=== PATIENT | female | born 1960 | race Caucasian/White ===

== ENCOUNTER 2017-05-14 08:22 | Emergency (ER) | payer OTHER ==
[~2017-05-14] VITALS: Ht 165.1 cm; Wt 140.6 kg
[~2017-05-14 08:22] MED LIST: CIPR500 PO; HYDCHL12.5 PO; LEVSOD125 PO; METO50ER PO; MULVITMINF PO; RXOXYACE PO
[2017-05-14] MEDS ORDERED: LISI20 (09:04)
[2017-05-14] MEDS ORDERED: Arthritis Pai42.5 GM TOP (10:02)
== END 2017-05-14 11:04 | disposition home or self-care (01) ==
LOC: ER 08:22
DX: M12.9 Arthropathy, unspecified (principal); M25.561 Pain in right knee; I10 Essential (primary) hypertension; E03.9 Hypothyroidism, unspecified; Z88.8 Allergy status to other drugs, medicaments and biological substances; Z79.899 Other long term (current) drug therapy; Z87.891 Personal history of nicotine dependence
CPT/HCPCS: 73564; 73610; 99283

== ENCOUNTER 2020-08-23 10:25 | Emergency (ER) | payer OTHER ==
[~2020-08-23] VITALS: Ht 165.1 cm; Wt 126.5 kg
[~2020-08-23 10:25] MED LIST changes: +Arthritis Pai42.5 GM TOP; +LISI20
[2020-08-23 11:04] LABS: BASOPHILS ABSOLUTE AUTO 0.08 K/mm3 (0.00-0.23); BASOPHILS PERCENT AUTO 1 % (0-2); EOSINOPHILS ABSOLUTE AUTO 0.27 K/mm3 (0.00-0.68); EOSINOPHILS PERCENT AUTO 4 % (0-6); Hematocrit 46.2 % (33.0-51.0); IMMATURE GRAN ABSOLUTE AUTO 0.01 K/mm3 (0.00-0.10); IMMATURE GRAN PERCENT AUTO 0 % (0-1); LYMPHOCYTES ABSOLUTE AUTO 2.43 K/mm3 (0.84-5.20); LYMPHOCYTES PERCENT AUTO 32 % (21-46); MONOCYTES ABSOLUTE AUTO 0.62 K/mm3 (0.16-1.47); MONOCYTES PERCENT AUTO 8 % (4-13); Mean Corpuscular HGB 26.5 pg (26.0-34.0); Mean Corpuscular HGB Conc 32.5 g/dL (31.5-36.5); Mean Corpuscular Volume 82 fL (80-100); Mean Platelet Volume 10.4 fL (9.1-12.4); NEUTROPHILS ABSOLUTE AUTO 4.23 K/mm3 (1.96-9.15); NEUTROPHILS PERCENT AUTO 56 % (41-73); Platelet Count 339 K/mm3 (150-400); RDW Coefficient Variation 14.5 % (11.7-14.2); RDW Standard Deviation 42.9 fL (35.1-46.3); Red Blood Cell Count 5.67 M/mm3 (3.80-5.20); White Blood Cell Count 7.64 K/mm3 (4.00-11.30)
[2020-08-23 11:17] LABS: Alanine Aminotransfer (ALT/SGP 24 U/L (12-78); Albumin, Blood 3.8 g/dL (3.4-5.0); Alk Phos 61 U/L (50-136); Anion Gap 6 mmol/L (6-16); Aspartate Aminotrans (AST/SGOT 20 U/L (12-37); Bilirubin, Total 0.4 mg/dL (0.1-1.0); Blood Urea Nitrogen 11 mg/dL (8-24); Bun/Creatinine Ratio 11.6 (12.0-20.0); CO2, Blood 24 mmol/L (21-32); Calcium, Blood 9.4 mg/dL (8.5-10.1); Chloride, Blood 110 mmol/L (98-108); Creatinine, Blood 0.95 mg/dL (0.40-1.00); Globulin, Blood 3.9 g/dL (2.2-4.0); Glomerular Filtration Rate >60 (60-); Glucose, Blood 121 mg/dL (70-99); Potassium, Blood 3.6 mmol/L (3.5-5.5); Sodium, Blood 140 mmol/L (136-145); Total Protein, Blood 7.7 g/dL (6.4-8.2); Troponin I <0.015 ng/mL (0.000-0.040)
== END 2020-08-23 14:00 | disposition home or self-care (01) ==
LOC: ER 10:25
PROVIDERS: Emergency Medicine
DX: R07.9 Chest pain, unspecified (principal); I10 Essential (primary) hypertension; E03.9 Hypothyroidism, unspecified; Z88.8 Allergy status to other drugs, medicaments and biological substances; Z79.899 Other long term (current) drug therapy
CPT/HCPCS: 36415; 71046; 80053; 83690; 83880; 84484; 85025; 93005; 93010; 99285-25

== ENCOUNTER 2021-02-02 08:42 | Day surgery (SDC) | payer OTHER ==
[~2021-02-02] VITALS: Ht 165.1 cm; Wt 109.9 kg
[~2021-02-02 08:42] MED LIST changes: -LISI20; +LISI20 PO; +METO25 PO
[2021-02-02] MEDS ORDERED: CENTRUM SILVER1 EAC2 PO (09:13)
--- NOTE | 2021-02-02 10:15 | NUR ---
02/02/21 [id number] Yosef Jaimes NO ANTIBIOTICS NEEDED
--- NOTE | 2021-02-02 18:24 | NUR ---
DISCHARGE: DISCHARGE INSTUCTIONS GIVEN TO PATIENT AT THIS TIME. PATIENT VERBALIZED UNDERSTANDING. NO SIGNS OR SYMPTOMS ACUTE DISTRESS NOTED.
== END 2021-02-02 18:34 | disposition home or self-care (01) ==
LOC: ORSCMMR 08:42 → ORD 10:30 → SURS 11:31 → ORSCMMR 18:34
PROVIDERS: Obstetrics & Gynecology
PROC: 0TJB8ZZ Inspection of Bladder, Via Natural or Artificial Opening Endoscopic (ICD-10-PCS; principal; 2021-02-02 09:30)
PROC: 0JQC0ZZ Repair Pelvic Region Subcutaneous Tissue and Fascia, Open Approach (ICD-10-PCS; principal; 2021-02-02 09:30)
DX: N81.10 Cystocele, unspecified (principal); I10 Essential (primary) hypertension; E03.9 Hypothyroidism, unspecified; E88.81 Metabolic syndrome and other insulin resistance; E66.01 Morbid (severe) obesity due to excess calories; Z68.41 Body mass index [BMI] 40.0-44.9, adult; Z79.899 Other long term (current) drug therapy
CPT/HCPCS: 90686; A9270; J1100; J1885; J2250; J2405; J2704; J3010; J7120

== ENCOUNTER → 2021-11-11 | Outpatient (CLI) | payer OTHER ==
[~2021-11-11] MED LIST changes: +CENTRUM SILVER1 EAC2 PO
== END | disposition home or self-care (01) ==
LOC: LAB SHORT 08:03 → LAB 08:03
DX: N39.0 Urinary tract infection, site not specified (principal)
CPT/HCPCS: 87077; 87086; 87186

== ENCOUNTER → 2022-03-03 | Outpatient (CLI) | payer OTHER ==
[2022-03-06 12:10] LABS: HPV 16 Negative (Negative); HPV 18 Negative (Negative); HPV OTHER HR TYPES Negative (Negative)
== END ==
LOC: LAB SHORT 16:17 → LAB 16:17
PROVIDERS: Obstetrics & Gynecology
DX: Z01.419 Encounter for gynecological examination (general) (routine) without abnormal findings (principal)
CPT/HCPCS: 87624; G0145

== ENCOUNTER → 2022-03-03 | Outpatient (CLI) | payer OTHER | LOC: LAB SHORT 07:30 → PLD 07:30 | DX: N95.0 Postmenopausal bleeding (principal) | CPT/HCPCS: 88305 ==

== ENCOUNTER → 2023-08-08 | Outpatient (CLI) | payer OTHER ==
[2023-08-08 11:57] LABS: BASOPHILS ABSOLUTE AUTO 0.05 K/mm3 (0.00-0.23); BASOPHILS PERCENT AUTO 1 % (0-2); EOSINOPHILS ABSOLUTE AUTO 0.29 K/mm3 (0.00-0.68); EOSINOPHILS PERCENT AUTO 4 % (0-6); Hematocrit 42.1 % (33.0-51.0); Hemoglobin 13.6 g/dL (11.5-16.0); IMMATURE GRAN ABSOLUTE AUTO 0.04 K/mm3 (0.00-0.10); IMMATURE GRAN PERCENT AUTO 1 % (0-1); LYMPHOCYTES ABSOLUTE AUTO 2.16 K/mm3 (0.84-5.20); LYMPHOCYTES PERCENT AUTO 28 % (21-46); MONOCYTES PERCENT AUTO 8 % (4-13); Mean Corpuscular HGB 26.7 pg (26.0-34.0); Mean Corpuscular HGB Conc 32.3 g/dL (31.5-36.5); Mean Corpuscular Volume 83 fL (80-100); Mean Platelet Volume 9.2 fL (9.1-12.4); NEUTROPHILS ABSOLUTE AUTO 4.69 K/mm3 (1.96-9.15); NEUTROPHILS PERCENT AUTO 60 % (41-73); Platelet Count 288 K/mm3 (150-400); RDW Coefficient Variation 14.2 % (11.7-14.2); RDW Standard Deviation 42.5 fL (35.1-46.3); White Blood Cell Count 7.83 K/mm3 (4.00-11.30)
[2023-08-08 12:07] LABS: Albumin, Blood 3.5 g/dL (3.4-5.0); Albumin/Globulin Ratio 0.9 (0.8-1.8); Bilirubin, Total 0.3 mg/dL (0.1-1.0); Bun/Creatinine Ratio 10.6 (12.0-20.0); Calcium, Blood 8.8 mg/dL (8.5-10.1); Creatinine, Blood 1.04 mg/dL (0.40-1.00); Globulin, Blood 3.8 g/dL (2.2-4.0); Potassium, Blood 4.3 mmol/L (3.5-5.5); Total Protein, Blood 7.3 g/dL (6.4-8.2)
== END | disposition home or self-care (01) ==
LOC: LAB 11:52 → LAB SHORT 11:52
PROVIDERS: Physician Assistant
DX: R10.9 Unspecified abdominal pain (principal)
CPT/HCPCS: 80053; 83690; 85025

== ENCOUNTER 2023-10-20 05:49 | Day surgery (SDC) | payer OTHER ==
[~2023-10-20] VITALS: Ht 165.1 cm; Wt 154.2 kg
[2023-10-20] VITALS (9 sets, daily range): BP systolic 112–142; BP diastolic 69–102
[~2023-10-20 05:49] MED LIST changes: +Aspir 8181 MG PO
[2023-10-20] MEDS ORDERED: Verapamil HCL 2.5 MG/ML 2ML Injection ONE (06:38)
[2023-10-20] MEDS ORDERED: Nitroglycerin 2 MG/20 ML BTL ONE (06:39)
[2023-10-20] MEDS ORDERED: NS 250 ML IV ONE (06:39)
[2023-10-20] MEDS ORDERED: NS 1,000 ML IV ONE ×2 (06:39→07:13)
[2023-10-20] MEDS ORDERED: Heparin Sodium 1000 Units/ML 10ML MDV ONE ×2 (06:39→07:26)
[2023-10-20] MEDS ORDERED: Metoprolol Succinate 50 MG TABCR PO ONE (07:05)
[2023-10-20] MEDS ORDERED: Aspirin 81 MG Chew PO ONE (07:05)
[2023-10-20] MEDS ORDERED: FentaNYL Citrate 50 MCG/ML 2 ML Injection ONE (07:12)
[2023-10-20] MEDS ORDERED: Midazolam HCl 1MG / ML 2ML Vial ONE (07:13)
[2023-10-20] MEDS ORDERED: Aspirin 81 MG Chew ONE (07:26)
--- NOTE | 2023-10-20 08:11 | NUR ---
PT RETURNED TO RECOVERY ROOM IN [facility]. R RAD TR BAND SITE SOFT NON-TENDER WITH NO HEMATOMA, NO PULSATILE BLEEDING AND R WRIST BOARD IN PLACE. PT'S FAMILY IN ROOM. DR RASCON IN ROOM TO SEE PT. PT DENIES CHEST PAIN. CALL LIGHT IN REACH.
--- NOTE | 2023-10-20 08:42 | NUR ---
NO CHANGES TO R RAD TR BAND SITE.
--- NOTE | 2023-10-20 09:03 | NUR ---
NO CHANGES TO R RAD TR BAND SITE. PT EATING BREAKFAST.
--- NOTE | 2023-10-20 10:04 | NUR ---
10 CC OF AIR REMOVED OVER 10 MIN AT 0950 OUT OF NOW DEFLATED RIGHT TR BAND; NO HEMATOMA, NO PULSATILE BLEEDING AND RIGHT WRIST BOARD IN PLACE. DISCHARGE INSTRUCTIONS REVIEWED WITH PT AND ALL QUESTIONS ANSWERED.
--- NOTE | 2023-10-20 10:17 | NUR ---
NO CHANGES TO DEFLATED RIGHT TR BAND SITE.
--- NOTE | 2023-10-20 10:35 | NUR ---
NO CHANGES TO DEFLATED R RAD TR BAND SITE.
--- NOTE | 2023-10-20 10:50 | NUR ---
DEFLATED RIGHT TR BAND REMOVED AND POLYMEM PLACED OVER R RAD SITE. R RAD SITE STILL SOFT NON-TENDER WITH NO HEMATOMA, NO PULSATILE BLEEDING AND R WRIST BOARD IN PLACE. 20 IV DISCONTINUED FROM RIGHT AC WITH INTACT CANNULA. PT ESCORTED OUT VIA WHEELCHAIR ESCORT.
== END 2023-10-20 10:53 | disposition home or self-care (01) ==
LOC: MHTC 05:49
DX: R07.89 Other chest pain (principal); E03.9 Hypothyroidism, unspecified; I12.9 Hypertensive chronic kidney disease with stage 1 through stage 4 chronic kidney disease, or unspecified chronic kidney disease; N18.9 Chronic kidney disease, unspecified; E78.5 Hyperlipidemia, unspecified; E66.01 Morbid (severe) obesity due to excess calories; Z68.43 Body mass index [BMI] 50.0-59.9, adult; Z87.891 Personal history of nicotine dependence; Z88.5 Allergy status to narcotic agent; Z88.8 Allergy status to other drugs, medicaments and biological substances; Z79.82 Long term (current) use of aspirin; Z79.890 Hormone replacement therapy; Z79.899 Other long term (current) drug therapy
CPT/HCPCS: 76937; 93458; 99152; 99153; A9270; C1769; C1894; J1644; J2250; J3010; J7030; J7050; Q9967